=== PATIENT | male | born 1975 | race Caucasian/White ===

== ENCOUNTER 2016-09-02 03:59 | Inpatient (IN) | payer OTHER ==
[~2016-09-02] VITALS: Ht 180.3 cm; Wt 80.0 kg
[2016-09-02] VITALS (9 sets, daily range): BP systolic 116–144; BP diastolic 68–83; PULSE 78–106; RESP 18–22; TEMP 96.3–98.1; O2SAT 94–100
[2016-09-02] MEDS ORDERED: SODIUM CHLOR 0.9% 1000 ML INJ 1,000 ML IV SCH (04:07)
[2016-09-02] MEDS ORDERED: HYDROmorphone HCL PF 1 MG/ML VIAL IV PUSH ONE ×5 (04:15→10:30)
[2016-09-02] MEDS ORDERED: SODIUM CHLORIDE 0.9% FLUSH 5 ML FLUSH IVF PRN ×2 (04:15→13:45)
[2016-09-02] MEDS ORDERED: PROPOFOL 200 MG/20 ML AMP IV ONE ×2 (04:15→08:57)
[2016-09-02 04:33] LABS: BASOPHIL % 0.6 % (0.0-2.0); EOSINOPHIL # 0.1 TH/MM3 (0-0.4); EOSINOPHIL % 1.2 % (0.0-4.0); HEMATOCRIT 43.1 % (39.0-51.0); HEMO FLAGS DIFF FINAL; LYMPH % 40.9 % (9.0-44.0); LYMPHOCYTE # 3.2 TH/MM3 (1.0-4.8); MEAN CELL VOLUME 91.1 FL (80.0-100.0); MEAN CORPUSCULAR HEMOGLOBIN 30.9 PG (27.0-34.0); MEAN CORPUSCULAR HGB CONC 33.9 % (32.0-36.0); NEUT % 51.3 % (16.0-70.0); PLATELET COUNT 168 TH/MM3 (150-450); RED BLOOD COUNT 4.73 MIL/MM3 (4.50-5.90); RED CELL DISTRIBUTION WIDTH 14.3 % (11.6-17.2); WHITE BLOOD COUNT 7.8 TH/MM3 (4.0-11.0)
[2016-09-02 04:43] LABS: APTT (PATIENT) 25.7 SEC (24.3-30.1); PROTHROMBIN TIME - PATIENT 10.8 SEC (9.8-11.6)
[2016-09-02 05:02] LABS: BICARBONATE 22.2 MEQ/L (21.0-32.0); POTASSIUM 3.7 MEQ/L (3.5-5.1)
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
[2016-09-02] MEDS ORDERED: KETAMINE HCL 500 MG/5 ML VIAL IV PUSH ONE (05:45)
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
[2016-09-02] MEDS: SODIUM CHLOR 0.9% 1000 ML INJ 1,000 ML IV SCH (06:39)
[2016-09-02] MEDS ORDERED: IOHEXOL 350 MG/ML 10 ML VIAL (for RAD DIAG) IV ONE (06:42)
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
[2016-09-02] MEDS ORDERED: ONDANSETRON HCL 4 MG/2 ML VIAL IV PUSH ONE (08:57)
[2016-09-02] MEDS ORDERED: NEOSTIGMINE 3 MG/3 ML SYR IV ONE (08:57)
[2016-09-02] MEDS ORDERED: CRUTMIS25 (09:28)
[2016-09-02] MEDS ORDERED: COMMODE 3-IN-11 MIS (09:28)
[2016-09-02] MEDS ORDERED: WALKER WHEELS/F1 MIS (09:28)
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
[2016-09-02] MEDS ORDERED: CLINDAMYCIN PHOS 600 MG/4 ML VIAL ONE (11:02)
[2016-09-02] MEDS ORDERED: GENTAMICIN SULFATE 80 MG/2 ML VIAL ONE (11:02)
[2016-09-02] MEDS ORDERED: VANCOMYCIN HCL 1000 MG VIAL ONE (11:02)
[2016-09-02] MEDS ORDERED: HYDROmorphone HCL PF 2 MG/ML VIAL ONE (11:06)
[2016-09-02] MEDS ORDERED: ACETAMINOPHEN 1000 MG/100 ML VIAL IV ONE (11:07)
[2016-09-02] MEDS ORDERED: ceFAZolin INJ 1,000 MG VIAL ONE (11:18)
--- NOTE | 2016-09-02 13:42 | PD.OP ---
cc: Dionisio King MD Operative Report Date of Surgery: Sep 02, 2016 Preoperative Diagnosis: Left leg closed comminuted distal tibia/fibula fracture. Left calcaneus fracture at calcaneocuboid joint. Postoperative Diagnosis: Same Procedure: Left leg treatment of tibia/fibular fracture with open reduction and internal fixation and intramedullary nail. Nonoperative treatment of left leg calcaneal fracture. Anesthesia: Gen. Surgeon: Dionisio King Site Surveyor(s): CRISTIAN Kumar The surgical procedure was assisted by my Advanced Registered Nurse Practitioner. My SOLAR PHOTOVOLTAIC INSTALLER presence was necessary throughout this case for the manipulation and positioning of the surgical extremity. My SOLAR PHOTOVOLTAIC INSTALLER was assisting me throughout the duration of this procedure. The skill set of an Advance Registered Nurse Practitioner was medically necessary to complete this procedure. During the surgical case, the surgical services director was working at the back table and the Advance Registered Nurse Practitioner was directly assisting me. Operation and Findings: Estimated blood loss: 350 cc. The patient was brought back to the operative theater. Gen. anesthesia was administered. He received vancomycin and Ancef. He had an abrasion about the lower leg posteriorly which was partial thickness. The left lower extremity was prepped and draped in usual sterile fashion. Incision was made anterior distal femur. We incised in line with the quadriceps tendon. A plastic sheath was placed within the knee to the proximal tibia. Threaded guidewire was placed to the appropriate proximal tibia position. We reamed proximally. We placed a ball-tipped guidewire down past the fracture which was in good position. We sequentially reamed up to 11 mm for placement of a Synthes 10 mm x 360 mm nail. As we passed the nail the tibial fracture was getting kicked into significant valgus. We tried to manipulate the leg to prevent this but we were unsuccessful. The nail and the guidewire up back off. We made an incision medially. We found that there was a significantly large bone fragment that was intruding within the canal. This was removed and replaced later on. We anatomically reduced the tibia and held this with a 3.5 stainless steel contoured plate utilizing 4, 10 mm unicortical locking screws. Once we did this the fibula fracture became much better aligned. We confirmed now that we had anatomic alignment of the lower leg both on the AP , mortise, and lateral views. We replaced the ball-tipped guidewire distally and then The nail into position. This time the fracture remained anatomic. The nail was secured with 3 screws distally, all of which had excellent purchase. The nail was locked proximally with 2 screws. We irrigated all of the wounds. We irrigated inside of the joint. The quadriceps longitudinal incision was closed with a 0 Vicryl. We closed the fascia over the medial plate with 0 Vicryl. All the remaining wounds were closed with 2-0 Vicryl and marylu. The leg was splinted. Nonweightbearing as treatment for the tibia fracture and the calcaneus fracture. Lovenox followed by aspirin for DVT prophylaxis. Dionisio King MD Sep 02, 2016 13:42
[2016-09-02] MEDS ORDERED: ASPI325T PO (13:44)
[2016-09-02] MEDS ORDERED: HYDR-3366 PO (13:44)
[2016-09-02] MEDS ORDERED: ENOX40P SQ (13:44)
[2016-09-02] MEDS ORDERED: Post-op Orders (for Pharmacy) MISC XX ONE (13:45)
[2016-09-02] MEDS ORDERED: MISCELLANEOUS PHARMACY INFORMATION XX ONE (13:45)
[2016-09-02] MEDS ORDERED: NALOXONE HCL 0.4 MG/ML AMP IV PRN (13:45)
[2016-09-02] MEDS ORDERED: MISCELLANEOUS NURSING INFORMATION XX PRN (13:45)
[2016-09-02] MEDS ORDERED: DO NOT ADM ANY ANTICOAGULANT DRUGS XX PRN (14:00)
[2016-09-02] MEDS ORDERED: MIDAZOLAM HCL 2 MG/2 ML VIAL ONE (14:11)
[2016-09-02] MEDS ORDERED: fentaNYL CITRATE 250 MCG/5 ML AMP ONE (14:11)
[2016-09-02 14:22] LABS: AUTOMATED NEUTROPHIL # 11.2 TH/MM3 (1.8-7.7); BASOPHIL % 0.3 % (0.0-2.0); HEMATOCRIT 39.2 % (39.0-51.0); HEMO FLAGS DIFF FINAL; LYMPH % 10.8 % (9.0-44.0); LYMPHOCYTE # 1.4 TH/MM3 (1.0-4.8); MEAN CELL VOLUME 91.5 FL (80.0-100.0); MEAN CORPUSCULAR HEMOGLOBIN 30.5 PG (27.0-34.0); MEAN CORPUSCULAR HGB CONC 33.4 % (32.0-36.0); MONO % 5.2 % (0.0-8.0); NEUT % 83.7 % (16.0-70.0); PLATELET COUNT 161 TH/MM3 (150-450); RED BLOOD COUNT 4.29 MIL/MM3 (4.50-5.90); RED CELL DISTRIBUTION WIDTH 14.1 % (11.6-17.2); WHITE BLOOD COUNT 13.4 TH/MM3 (4.0-11.0)
--- NOTE | 2016-09-02 14:27 | RADRPT ---
EXAM DATE/TIME: 09/02/2016 13:08 [facility] COMPARISON: TIBIA/FIBULA LEFT (AP/LAT), September 02, 2016, 5:08. INDICATIONS : Open reduction and internal fixation of the left tibia. MEDICAL HISTORY : None. SURGICAL HISTORY : None. ENCOUNTER: Subsequent ACUITY: 2 days PAIN SCORE: Non-responsive. LOCATION: Left tibia. FINDINGS: Status post internal fixation of fractures involving the distal tibia. There is good alignment and po sition of the fracture fragments as well as the hardware. There is a fracture of the distal fibula. T here is good alignment at the mortise joint. CONCLUSION: Good position and alignment on this postoperative study. Viktor Eastman MD on September 02, 2016 at 14:23 Board Certified Radiologist. This report was verified electronically.
[2016-09-02] MEDS: ONDANSETRON HCL 4 MG/2 ML VIAL IVP PRN (16:11)
[2016-09-02] MEDS: ACETAMINOPHEN/HYDROcodone 325 MG/10 MG TAB PO PRN ×2 (16:17→23:20)
[2016-09-02] MEDS: MORPHINE SULFATE 4 MG/ML INJ IV PUSH PRN ×2 (18:50→21:43)
[2016-09-02] MEDS: diphenhydrAMINE HCL 25 MG CAP PO PRN (21:37)
[2016-09-02] MEDS: DOCUSATE SODIUM 50 MG/SENNA 8.6 MG TAB PO SCH (21:37)
[2016-09-02] MEDS: SODIUM CHLORIDE 0.9% FLUSH 5 ML FLUSH IVF SCH (21:37)
[2016-09-02] MEDS: DEXT 5%-NACL 0.45% 1000 ML INJ 1,000 ML IV SCH (22:43)
[2016-09-03] VITALS: BP 146/79; PULSE 111; RESP 20; TEMP 98.6; O2SAT 95
[2016-09-03] MEDS: MORPHINE SULFATE 4 MG/ML INJ IV PUSH PRN (01:32)
[2016-09-03] MEDS: MORPHINE SULFATE 30 MG/30 ML PCA IV SCH ×4 (04:44→22:53)
[2016-09-03] MEDS ORDERED: NALOXONE HCL 0.4 MG/ML AMP IV PRN ×2 (04:45→14:00)
[2016-09-03] MEDS: SODIUM CHLOR 0.9% 1000 ML INJ 1,000 ML IV SCH ×2 (06:00→07:09)
[2016-09-03] MEDS: PCA - TOTAL MG MORPHINE DELIVERED PER SHIFT SCH ×4 (06:00→22:00)
[2016-09-03] MEDS: MULTIVITAMINS/MINERALS THERAPEUTIC TAB PO SCH (07:57)
[2016-09-03] MEDS: SODIUM CHLORIDE 0.9% FLUSH 5 ML FLUSH IVF SCH (07:57)
[2016-09-03] MEDS: DOCUSATE SODIUM 50 MG/SENNA 8.6 MG TAB PO SCH ×2 (07:57→21:12)
[2016-09-03] MEDS: ACETAMINOPHEN/HYDROcodone 325 MG/10 MG TAB PO PRN ×3 (07:58→21:13)
[2016-09-03] MEDS: DEXT 5%-NACL 0.45% 1000 ML INJ 1,000 ML IV SCH (07:59)
[2016-09-03 08:00] VITALS: BP 127/89; PULSE 119; RESP 16; TEMP 96.1; O2SAT 94
[2016-09-03] MEDS: MAGNESIUM HYDROXIDE SUSP 30 ML CUP PO PRN ×2 (08:03→13:16)
--- NOTE | 2016-09-03 08:53 | PD.ORT.PN ---
Subjective Subjective Remarks Was complaining of significant pain for the night, but is now very comfortable. Patient was placed on MARKETING PROFESSOR. No new areas of concern. supervisory lifeguard at the door due to some behavior from last night. Details are not clear Objective Vitals Vital Signs Date Time Temp Pulse Resp B/P Pulse Ox O2 Delivery O2 Flow Rate FiO2 09/03/16 06:00 16 09/03/16 04:44 18 09/03/16 00:00 98.6 111 20 146/79 95 09/02/16 20:00 97.8 106 22 144/80 97 09/02/16 18:55 18 09/02/16 17:48 98 Nasal Cannula 2.00 09/02/16 17:47 98 Nasal Cannula 2.00 09/02/16 17:17 18 09/02/16 16:18 98 Nasal Cannula 2.00 09/02/16 16:00 96.3 78 18 137/83 100 09/02/16 15:00 97.1 95 14 135/84 98 Nasal Cannula 2 09/02/16 14:45 100 14 137/86 98 Nasal Cannula 2 09/02/16 14:30 100 14 140/84 98 Nasal Cannula 2 09/02/16 14:15 102 14 131/85 97 Nasal Cannula 2 09/02/16 14:00 97.1 102 14 138/81 97 Nasal Cannula 2 I/O 09/02/16 09/02/16 09/02/16 09/03/16 09/03/16 09/03/16 07:00 15:00 23:00 07:00 15:00 23:00 Intake Total 1200 ml 480 ml 240 ml Output Total 350 ml 2150 ml 1550 ml Balance 850 ml -1670 ml -1310 ml Intake Oral 480 ml 240 ml Other 1200 ml Output Urine Total 2150 ml 1550 ml Estimated Blood Loss 350 ml # Bowel Movements 0 0 Result Diagram: 09/02/16 1414 09/02/16 0420 Objective Remarks Dressing is dry. Wiggles his toes. Sensation is normal. No significant pain with dorsiflexion of the great toe. X-rays reviewed and appear satisfactory Assessment & Plan Ortho Post Op Day #: 1 Problem List: Assessment and Plan Fracture left tibia and fibula, closed. Fracture calcaneus. ORIF left tibia IM mitch/short plate: POD #1 PLAN: Nonweightbearing left leg Continued MARKETING PROFESSOR for pain for today, consider changing to oral medications tomorrow. Lovenox Leave dressing intact Stable orthopedically Prakash Segovia MD Sep 03, 2016 08:53
--- NOTE | 2016-09-03 08:53 | PD.ORT.PN ---
Subjective Subjective Remarks Was complaining of significant pain for the night, but is now very comfortable. Patient was placed on MEDICAL MANAGEMENT TRAINER. No new areas of concern. armored car guard at the door due to some behavior from last night. Details are not clear Objective Vitals Vital Signs Date Time Temp Pulse Resp B/P Pulse Ox O2 Delivery O2 Flow Rate FiO2 09/03/16 06:00 16 09/03/16 04:44 18 09/03/16 00:00 98.6 111 20 146/79 95 09/02/16 20:00 97.8 106 22 144/80 97 09/02/16 18:55 18 09/02/16 17:48 98 Nasal Cannula 2.00 09/02/16 17:47 98 Nasal Cannula 2.00 09/02/16 17:17 18 09/02/16 16:18 98 Nasal Cannula 2.00 09/02/16 16:00 96.3 78 18 137/83 100 09/02/16 15:00 97.1 95 14 135/84 98 Nasal Cannula 2 09/02/16 14:45 100 14 137/86 98 Nasal Cannula 2 09/02/16 14:30 100 14 140/84 98 Nasal Cannula 2 09/02/16 14:15 102 14 131/85 97 Nasal Cannula 2 09/02/16 14:00 97.1 102 14 138/81 97 Nasal Cannula 2 I/O 09/02/16 09/02/16 09/02/16 09/03/16 09/03/16 09/03/16 07:00 15:00 23:00 07:00 15:00 23:00 Intake Total 1200 ml 480 ml 240 ml Output Total 350 ml 2150 ml 1550 ml Balance 850 ml -1670 ml -1310 ml Intake Oral 480 ml 240 ml Other 1200 ml Output Urine Total 2150 ml 1550 ml Estimated Blood Loss 350 ml # Bowel Movements 0 0 Result Diagram: 09/02/16 1414 09/02/16 0420 Objective Remarks Dressing is dry. Wiggles his toes. Sensation is normal. No significant pain with dorsiflexion of the great toe. X-rays reviewed and appear satisfactory Assessment & Plan Assessment and Plan Fracture left tibia and fibula, closed. Fracture calcaneus. ORIF left tibia IM mitch/short plate: POD #1 PLAN: Nonweightbearing left leg Continued MEDICAL MANAGEMENT TRAINER for pain for today, consider changing to oral medications tomorrow. Lovenox Leave dressing intact Stable orthopedically Prakash Segovia MD Sep 03, 2016 08:53
[2016-09-03] MEDS ORDERED: HEPARIN SODIUM - SQ 10,000 UNITS/ML VIAL SQ SCH (09:00)
[2016-09-03 09:05] VITALS: O2SAT 95
[2016-09-03] MEDS: LACTULOSE SYRUP 20 GM/30 ML CUP PO SCH (09:19)
[2016-09-03 10:55] LABS: HEMATOCRIT 35.3 % (39.0-51.0); REVIEW FLAG FINAL
[2016-09-03] MEDS: ENOXAPARIN SODIUM 40 MG/0.4 ML SYRINGE SQ SCH (11:43)
[2016-09-03 11:45] VITALS: BP 119/73; PULSE 90; RESP 18; TEMP 96.5; O2SAT 96
[2016-09-03] MEDS ORDERED: ENOXAPARIN SODIUM 40 MG/0.4 ML SYRINGE SQ SCH (13:00)
[2016-09-03] MEDS: ONDANSETRON HCL 4 MG/2 ML VIAL IVP PRN (13:16)
[2016-09-03] MEDS: diphenhydrAMINE HCL 25 MG CAP PO PRN (13:26)
[2016-09-03 16:33] VITALS: BP 142/87; PULSE 106; RESP 18; TEMP 96.6; O2SAT 97
--- NOTE | 2016-09-03 18:07 | HHI.PR ---
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 Fractures of the distal tibia and fibula and anterior calcaneus. Balwinder Giraldo MD Foot X-Ray 09/02/168 Signed Impressions: Service Date/Time: Friday, September 02, 2016 05:17 - CONCLUSION: 1. Mildly displaced fracture of the anterior calcaneus extending into the calcaneocuboid joint without dislocation. Balwinder Giraldo MD Ankle X-Ray 09/02/168 Signed Impressions: Service Date/Time: Friday, September 02, 2016 05:13 - CONCLUSION: 1. Fractures of distal tibia and fibula and anterior calcaneus. Balwinder Giraldo MD Pelvis X-Ray 09/02/167 Signed Impressions: Service Date/Time: Friday, September 02, 2016 05:07 - CONCLUSION: Unremarkable examination of the pelvis. Balwinder Giraldo MD Chest X-Ray 09/02/167 Signed Impressions: Service Date/Time: Friday, September 02, 2016 05:05 - CONCLUSION: No acute disease. Balwinder Giraldo MD Lower Extremity CT 09/02/16 0000 Signed Impressions: Service Date/Time: Friday, September 02, 2016 06:27 - CONCLUSION: 1. Mildly comminuted fracture anterior calcaneus extending into the calcaneocuboid joint. No dislocation. 2. Small relatively nondisplaced avulsion fractures of the medial aspect of the cuboid and tarsal navicular and the anterosuperior aspect of the talus. Balwinder Giraldo MD Chest CT 09/02/16 0000 Signed Impressions: Service Date/Time: Friday, September 02, 2016 06:20 - CONCLUSION: 1. Negative for traumatic injury in the thorax. Minimal dependent atelectasis in the lungs. Remote granulomatous disease. Balwinder Giraldo MD Cervical Spine CT 09/02/16 0000 Signed Impressions: Service Date/Time: Friday, September 02, 2016 06:13 - CONCLUSION: Normal examination for a patient of this age. Balwinedr Giraldo MD Abdomen/Pelvis CT 09/02/16 0000 Signed Impressions: Service Date/Time: Friday, September 02, 2016 06:20 - CONCLUSION: 1. No acute findings. Mild basilar atelectasis in the lungs. Mild fatty liver. Mild constipation. Balwinder Giraldo MD Narrative Exam GENERAL: 41-year-old well-nourished, well developed male lying in bed. SKIN: Warm and dry. HEAD: Normocephalic. ENT: No nasal bleeding or discharge. Mucous membranes pink and moist. NECK: Trachea midline. No JVD. CARDIOVASCULAR: Regular rate and rhythm. RESPIRATORY: No accessory muscle use. Lungs clear to auscultation. Breath sounds equal bilaterally. GASTROINTESTINAL: Abdomen soft, non-tender, nondistended. + BS. MUSCULOSKELETAL: Extremities without cyanosis, or edema. LLE dressing C/D/I. + sensation, MAEW. NEUROLOGICAL: Awake and alert. Normal speech. A/P Assessment and Plan INJURIES: LEFT Distal tib-fib fracture LEFT anterior calcaneus fx (non-op) 09/02: ORIF with IM nail left tib-fib Diet: Regular, tolerating Pulmonary: IS, encourage patient use Pain: [place]. IV Morphine. Morphine CONSUMER SCIENCE TEACHER. Pain better controlled with CONSUMER SCIENCE TEACHER Activity: OOB. PT and OT ordered. (NWB LLE) GI: Pepcid. Bowel: Colace. MOM. Lactulose QD. No BM. DVT: SCD. Lovenox 40 QD Hemoglobin stable. Plan is to transition patient to oral medication for pain tomorrow. Plan to discharge when cleared by orthopedics. Case management consulted for discharge planning. DME ordered. Plan of care discussed with patient and family at bedside. Juan José Barlow Sep 03, 2016 18:07
[2016-09-03] MEDS: FAMOTIDINE 20 MG TAB PO SCH (21:12)
[2016-09-03 23:00] VITALS: BP 109/72; PULSE 88; RESP 20; TEMP 98.4; O2SAT 94
[2016-09-04] VITALS (7 sets, daily range): BP systolic 111–127; BP diastolic 64–82; PULSE 88–110; RESP 16–22; TEMP 96–98; O2SAT 94–98
[2016-09-04] MEDS: diphenhydrAMINE HCL 25 MG CAP PO PRN ×2 (00:15→18:51)
[2016-09-04] MEDS: ONDANSETRON HCL 4 MG/2 ML VIAL IVP PRN (00:39)
[2016-09-04] MEDS: SODIUM CHLORIDE 0.9% FLUSH 5 ML FLUSH IVF SCH ×3 (00:39→20:54)
[2016-09-04] MEDS: PCA - TOTAL MG MORPHINE DELIVERED PER SHIFT SCH (04:14)
[2016-09-04] MEDS: ACETAMINOPHEN/HYDROcodone 325 MG/10 MG TAB PO PRN ×5 (04:18→22:58)
[2016-09-04] MEDS: DOCUSATE SODIUM 50 MG/SENNA 8.6 MG TAB PO SCH ×2 (07:50→20:54)
[2016-09-04] MEDS: MULTIVITAMINS/MINERALS THERAPEUTIC TAB PO SCH (07:51)
[2016-09-04] MEDS: LACTULOSE SYRUP 20 GM/30 ML CUP PO SCH ×2 (08:01→18:51)
[2016-09-04] MEDS: MORPHINE SULFATE 30 MG/30 ML PCA IV SCH (09:15)
--- NOTE | 2016-09-04 11:15 | PD.ORT.PN ---
Subjective Post Op Day #: 2 Subjective Remarks Patient is resting in bed in [facility]. Patient's pain is controlled. Patient anxious to return home to [place]. Objective Vitals Vital Signs Date Time Temp Pulse Resp B/P Pulse Ox O2 Delivery O2 Flow Rate FiO2 09/04/16 09:15 16 09/04/16 08:00 96.8 98 16 122/80 96 09/04/16 05:18 18 09/04/16 04:59 97.1 88 20 111/75 98 09/04/16 04:14 18 09/04/16 01:05 97.4 96 22 115/75 97 09/03/16 23:00 98.4 88 20 109/72 94 09/03/16 22:58 18 09/03/16 22:53 18 09/03/16 22:13 18 09/03/16 22:00 18 09/03/16 16:33 96.6 106 18 142/87 97 09/03/16 14:32 18 09/03/16 11:45 96.5 90 18 119/73 96 I/O 09/03/16 09/03/16 09/03/16 09/04/16 09/04/16 09/04/16 07:00 15:00 23:00 07:00 15:00 23:00 Intake Total 240 ml 987 ml 1057 ml 806 ml Output Total 1550 ml 2600 ml 2200 ml 1601 ml Balance -1310 ml -1613 ml -1143 ml -795 ml Intake Oral 240 ml 600 ml 820 ml 480 ml IV Total 387 ml 237 ml 326 ml Output Urine Total 1550 ml 2600 ml 2200 ml 1600 ml Stool Total 1 ml # Bowel Movements 0 0 0 1 Result Diagram: 09/03/16 1045 09/02/16 0420 Procedures Fracture calcaneus. ORIF left tibia IM mitch/short plate: POD #2 Objective Remarks Dressing and splint are clean dry and intact. Wiggles his toes. Sensation is normal. No significant pain with dorsiflexion of the great toe. BCR X 5 Assessment & Plan Ortho Post Op Day #: 2 Problem List: Assessment and Plan Fracture left tibia and fibula, closed. Fracture calcaneus. ORIF left tibia IM mitch/short plate: POD #2 PLAN: Nonweightbearing left leg DC [employer] today and begin oral pain medication Lovenox Leave dressing intact Stable orthopedically for discharge once medically clear and pain is managed with oral medication. Patient will need arrangements made as he lives in [place]. Sreedhar Peoples Sep 04, 2016 11:15
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
[2016-09-04] MEDS: ENOXAPARIN SODIUM 40 MG/0.4 ML SYRINGE SQ SCH (13:00)
[2016-09-04] MEDS ORDERED: MELATONIN 5 MG TAB PO PRN (13:30)
[2016-09-04] MEDS ORDERED: PILL SPLITTER OTHER PRN (13:45)
--- NOTE | 2016-09-04 14:14 | HHI.PR ---
Subjective Subjective Notes Walked with physical therapy down the hallway today Worried that pain will not be controlled once morphine WHOLESALE DIAMOND BROKER discontinued Objective Vitals/I&O Vital Signs Date Time Temp Pulse Resp B/P Pulse Ox O2 Delivery O2 Flow Rate FiO2 09/04/16 09:15 16 09/04/16 08:00 96.8 98 122/80 96 09/03/16 09:05 21 09/02/16 17:48 Nasal Cannula 2.00 Labs Laboratory Tests Test 09/02/16 09/02/16 09/03/16 04:20 14:14 10:45 Prothrombin Time 10.8 SEC Prothromb Time International 1.0 RATIO Ratio Activated Partial 25.7 SEC Thromboplast Time Sodium Level 140 MEQ/L Potassium Level 3.7 MEQ/L Chloride Level 105 MEQ/L Carbon Dioxide Level 22.2 MEQ/L Anion Gap 13 MEQ/L Blood Urea Nitrogen 9 MG/DL Creatinine 0.97 MG/DL Estimat Glomerular Filtration 85 ML/MIN Rate Random Glucose 79 MG/DL Calcium Level 8.1 MG/DL Blood Type A NEGATIVE Antibody Screen NEGATIVE Blood Bank Comment White Blood Count 13.4 TH/MM3 Red Blood Count 4.29 MIL/MM3 Mean Corpuscular Volume 91.5 FL Mean Corpuscular Hemoglobin 30.5 PG Mean Corpuscular Hemoglobin 33.4 % Concent Red Cell Distribution Width 14.1 % Platelet Count 161 TH/MM3 Mean Platelet Volume 7.3 FL Neutrophils (%) (Auto) 83.7 % Lymphocytes (%) (Auto) 10.8 % Monocytes (%) (Auto) 5.2 % Eosinophils (%) (Auto) 0.0 % Basophils (%) (Auto) 0.3 % Neutrophils # (Auto) 11.2 TH/MM3 Lymphocytes # (Auto) 1.4 TH/MM3 Monocytes # (Auto) 0.7 TH/MM3 Eosinophils # (Auto) 0.0 TH/MM3 Basophils # (Auto) 0.0 TH/MM3 CBC Comment DIFF FINAL Differential Comment Hemoglobin 12.5 GM/DL Hematocrit 35.3 % Radiology Last Impressions Tibia/Fibula X-Ray 09/02/16417 Signed Impressions: Service Date/Time: Friday, September 02, 2016 05:08 - CONCLUSION: 1. Fractures of the distal tibia and fibula and anterior calcaneus. Balwinder Giraldo MD Foot X-Ray 09/02/16417 Signed Impressions: Service Date/Time: Friday, September 02, 2016 05:17 - CONCLUSION: 1. Mildly displaced fracture of the anterior calcaneus extending into the calcaneocuboid joint without dislocation. Balwinder Giraldo MD Ankle X-Ray 09/02/16 0418 Signed Impressions: Service Date/Time: Friday, September 02, 2016 05:13 - CONCLUSION: 1. Fractures of distal tibia and fibula and anterior calcaneus. Balwinder Giraldo MD Pelvis X-Ray 09/02/16 0407 Signed Impressions: Service Date/Time: Friday, September 02, 2016 05:07 - CONCLUSION: Unremarkable examination of the pelvis. Balwinder Giraldo MD Chest X-Ray 09/02/16 0407 Signed Impressions: Service Date/Time: Friday, September 02, 2016 05:05 - CONCLUSION: No acute disease. Balwinder Giraldo MD Lower Extremity CT 09/02/16 0000 Signed Impressions: Service Date/Time: Friday, September 02, 2016 06:27 - CONCLUSION: 1. Mildly comminuted fracture anterior calcaneus extending into the calcaneocuboid joint. No dislocation. 2. Small relatively nondisplaced avulsion fractures of the medial aspect of the cuboid and tarsal navicular and the anterosuperior aspect of the talus. Balwinder Giraldo MD Chest CT 09/02/16 0000 Signed Impressions: Service Date/Time: Friday, September 02, 2016 06:20 - CONCLUSION: 1. Negative for traumatic injury in the thorax. Minimal dependent atelectasis in the lungs. Remote granulomatous disease. Balwinder Giraldo MD Cervical Spine CT 09/02/16 0000 Signed Impressions: Service Date/Time: Friday, September 02, 2016 06:13 - CONCLUSION: Normal examination for a patient of this age. Balwinder Giraldo MD Abdomen/Pelvis CT 09/02/16 0000 Signed Impressions: Service Date/Time: Friday, September 02, 2016 06:20 - CONCLUSION: 1. No acute findings. Mild basilar atelectasis in the lungs. Mild fatty liver. Mild constipation. Balwinder Giraldo MD Narrative Exam GENERAL: 41-year-old well-nourished, well developed male lying in bed. SKIN: Warm and dry. HEAD: Normocephalic. ENT: No nasal bleeding or discharge. Mucous membranes pink and moist. NECK: Trachea midline. No JVD. CARDIOVASCULAR: Regular rate and rhythm. RESPIRATORY: No accessory muscle use. Lungs clear to auscultation. Breath sounds equal bilaterally. GASTROINTESTINAL: Abdomen soft, non-tender, nondistended. + BS. MUSCULOSKELETAL: Extremities without cyanosis, or edema. LLE dressing C/D/I. + sensation, MAEW. NEUROLOGICAL: Awake and alert. Normal speech. A/P Assessment and Plan INJURIES: LEFT Distal tib-fib fracture LEFT anterior calcaneus fx (non-op) 09/02: ORIF with IM nail left tib-fib Diet: Regular, tolerating Pulmonary: IS, encourage patient use Pain: [place]. Morphine WHOLESALE DIAMOND BROKER discontinued. Added scheduled Robaxin and Neurontin. IV Dilaudid for breakthrough pain. Activity: OOB. PT and OT ordered. (NWB LLE). Ambulated in the [place] with a walker and physical therapist. GI: Pepcid. Bowel: Colace. MOM. Lactulose QD. No BM. Added daily MiraLAX. DVT: SCD. Lovenox 40 QD Plan to discharge when cleared by orthopedics. Case management consulted for discharge planning. DME ordered. Family plans to take patient back to [place] via van upon discharge. Plan of care discussed with patient at bedside. Juan José Barlow Sep 04, 2016 14:14
[2016-09-04] MEDS ORDERED: HYDROmorphone HCL PF 1 MG/ML VIAL IV PRN (14:30)
[2016-09-04] MEDS: POLYETHYLENE GLYCOL 17 GM PKG PO SCH (14:44)
[2016-09-04] MEDS: GABAPENTIN 400 MG CAP PO SCH ×2 (14:45→18:44)
[2016-09-04] MEDS: METHOCARBAMOL 500 MG TAB PO SCH ×2 (14:45→20:54)
[2016-09-04] MEDS ORDERED: ACETAMINOPHEN/HYDROcodone 325 MG/10 MG TAB PO PRN (16:00)
[2016-09-04] MEDS: FAMOTIDINE 20 MG TAB PO SCH (20:54)
[2016-09-05 00:20] VITALS: BP 125/73; PULSE 105; RESP 21; TEMP 99.1; O2SAT 96
[2016-09-05] MEDS: ACETAMINOPHEN/HYDROcodone 325 MG/10 MG TAB PO PRN ×4 (02:59→14:59)
[2016-09-05 06:09] LABS: AUTOMATED NEUTROPHIL # 4.9 TH/MM3 (1.8-7.7); BASOPHIL # 0.1 TH/MM3 (0-0.2); BASOPHIL % 0.7 % (0.0-2.0); EOSINOPHIL # 0.2 TH/MM3 (0-0.4); EOSINOPHIL % 2.6 % (0.0-4.0); HEMATOCRIT 33.5 % (39.0-51.0); HEMO FLAGS DIFF FINAL; LYMPH % 20.7 % (9.0-44.0); LYMPHOCYTE # 1.5 TH/MM3 (1.0-4.8); MEAN CELL VOLUME 90.9 FL (80.0-100.0); MEAN CORPUSCULAR HEMOGLOBIN 30.7 PG (27.0-34.0); MEAN CORPUSCULAR HGB CONC 33.8 % (32.0-36.0); MONO % 7.2 % (0.0-8.0); NEUT % 68.8 % (16.0-70.0); PLATELET COUNT 137 TH/MM3 (150-450); RED BLOOD COUNT 3.69 MIL/MM3 (4.50-5.90); RED CELL DISTRIBUTION WIDTH 14.2 % (11.6-17.2); WHITE BLOOD COUNT 7.2 TH/MM3 (4.0-11.0)
[2016-09-05 06:36] LABS: ALKALINE PHOSPHATASE 66 U/L (45-117); ALT (GPT) 28 U/L (12-78); ANION GAP 7 MEQ/L (5-15); AST (GOT) 41 U/L (15-37); BICARBONATE 31.8 MEQ/L (21.0-32.0); BLOOD UREA NITROGEN 7 MG/DL (7-18); CHLORIDE 99 MEQ/L (98-107); GLOMERULAR FILTRATION RATE 98 ML/MIN (>89); POTASSIUM 3.5 MEQ/L (3.5-5.1); SODIUM (NA) 138 MEQ/L (136-145); TOTAL BILIRUBIN ADULT 0.5 MG/DL (0.2-1.0)
[2016-09-05] MEDS: METHOCARBAMOL 500 MG TAB PO SCH ×2 (06:51→12:54)
[2016-09-05 08:20] VITALS: BP 129/64; PULSE 94; RESP 16; TEMP 98.8; O2SAT 96
[2016-09-05] MEDS: SODIUM CHLORIDE 0.9% FLUSH 5 ML FLUSH IVF SCH (09:14)
[2016-09-05] MEDS: GABAPENTIN 400 MG CAP PO SCH ×2 (09:14→12:54)
[2016-09-05] MEDS: DOCUSATE SODIUM 50 MG/SENNA 8.6 MG TAB PO SCH (09:14)
[2016-09-05] MEDS: MULTIVITAMINS/MINERALS THERAPEUTIC TAB PO SCH (09:14)
[2016-09-05] MEDS: POLYETHYLENE GLYCOL 17 GM PKG PO SCH (09:16)
[2016-09-05] MEDS: LACTULOSE SYRUP 20 GM/30 ML CUP PO SCH (09:16)
[2016-09-05 12:20] VITALS: BP 124/70; PULSE 91; RESP 16; TEMP 97.7; O2SAT 97
[2016-09-05] MEDS: ENOXAPARIN SODIUM 40 MG/0.4 ML SYRINGE SQ SCH (12:55)
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
== END 2016-09-05 15:14 | disposition home or self-care (01) | DRG 494 ==
LOC: HOR 03:59 → NEDA 08:11 → N06A 15:22 → N06B 09-04 12:03 → N06A 09-04 12:08
PROVIDERS: ADMIT Surgery; ATTEND Surgery
PROC: 0QSH04Z Reposition Left Tibia with Internal Fixation Device, Open Approach (ICD-10-PCS; 2016-09-02)
PROC: 0QSK0ZZ Reposition Left Fibula, Open Approach (ICD-10-PCS; 2016-09-02)
PROC: 0QSH06Z Reposition Left Tibia with Intramedullary Internal Fixation Device, Open Approach (ICD-10-PCS; principal; 2016-09-02 11:18)
DX: S82.452A Displaced comminuted fracture of shaft of left fibula, initial encounter for closed fracture (principal); S82.302A Unspecified fracture of lower end of left tibia, initial encounter for closed fracture; S92.062A Displaced intraarticular fracture of left calcaneus, initial encounter for closed fracture; I10 Essential (primary) hypertension; F43.10 Post-traumatic stress disorder, unspecified; F12.90 Cannabis use, unspecified, uncomplicated; Y92.410 Unspecified street and highway as the place of occurrence of the external cause; V23.4XXA Motorcycle driver injured in collision with car, pick-up truck or van in traffic accident, initial encounter; Z88.0 Allergy status to penicillin
CPT/HCPCS: 29515; 71010; 71260; 72125; 72170; 73590; 73610; 73630; 73700; 74177; 76000; 80048; 80053; 85014; 85018; 85025; 85610; 85730; 86850; 86900; 86901; 94150; 96374; 96376; C1713; E0113; J0131; J0690; J1170; J1580; J1650; J2250; J2270; J2405; J2710; J3010; J3370; J7030; Q9967